=== PATIENT | male | born 1945 | race Caucasian/White ===

== ENCOUNTER → 2020-01-12 | Outpatient (CLI) | payer MEDICARE ==
[~2020-01-12] MED LIST: ASPI81TA45 PO; CLOP75TA PO; HYDR-3237 PO; LISI-167 PO; METO25TA35 PO; OMEP-110 PO; RANI150T4 PO; ROSU20TA2 PO; ROSU40TA PO
== END | disposition home or self-care (01) ==
LOC: CFH 16:08
PROVIDERS: ATTEND Physician Assistant Medical
DX: I71.2 Thoracic aortic aneurysm, without rupture (principal); I25.10 Atherosclerotic heart disease of native coronary artery without angina pectoris; I10 Essential (primary) hypertension; E78.2 Mixed hyperlipidemia; R73.01 Impaired fasting glucose
CPT/HCPCS: 71046